=== PATIENT | female | born 1985 ===

== ENCOUNTER 2019-06-28 17:12 | Outpatient (CLI) | payer OTHER ==
[2019-06-28 21:41] VITALS: BP 103/58
[2019-06-28 21:43] LABS: Hematocrit 28.5 % (30.3-42.9); Hemoglobin 9.8 gm/dl (10.1-14.3); Mean Corpuscular HGB Conc 35 % (30-34); Mean Corpuscular Volume 85 fl (79-97); Platelet Count 254 K/mm3 (140-440); Red Blood Count 3.37 M/mm3 (3.65-5.03); Red Cell Distribution Width 13.6 % (13.2-15.2)
--- NOTE | 2019-06-29 00:05 | Ultrasound Report ---
ULTRASOUND OBSTETRIC LIMITED ULTRASOUND BIOPHYSICAL PROFILE INDICATION / CLINICAL INFORMATION: fell one day ago. Clinical gestational age: 24 weeks 0 days. COMPARISON: None available. FINDINGS: BREATHING MOVEMENT = 2 GROSS BODY MOVEMENT = 2 TONE = 2 QUALITATIVE AMNIOTIC FLUID VOLUME = 2 TOTAL BIOPHYSICAL SCORE = 8/8 HEART RATE (beats per minute): 144 AMNIOTIC FLUID INDEX (cm) = 12.5 cm within normal limits PRESENTATION: Breech. PLACENTA: Anterior. No acute abnormality. ADDITIONAL FINDINGS: None. IMPRESSION: 1. Biophysical Score = 8/8 2. No acute sonographic abnormality. Signer Name: Little Cox MD Signed: 06/29/2019 12:00 AM Workstation Name: [id number]
--- NOTE | 2019-06-29 00:07 | Ultrasound Report ---
ULTRASOUND OBSTETRIC LIMITED ULTRASOUND BIOPHYSICAL PROFILE INDICATION / CLINICAL INFORMATION: fell one day ago. Clinical gestational age: 24 weeks 0 days. COMPARISON: None available. FINDINGS: BREATHING MOVEMENT = 2 GROSS BODY MOVEMENT = 2 TONE = 2 QUALITATIVE AMNIOTIC FLUID VOLUME = 2 TOTAL BIOPHYSICAL SCORE = 8/8 HEART RATE (beats per minute): 144 AMNIOTIC FLUID INDEX (cm) = 12.5 cm within normal limits PRESENTATION: Breech. PLACENTA: Anterior. No acute abnormality. ADDITIONAL FINDINGS: None. IMPRESSION: 1. Biophysical Score = 8/8 2. No acute sonographic abnormality. Signer Name: Little Cox MD Signed: 06/29/2019 12:03 AM Workstation Name: [id number]
== END 2019-06-28 22:02 | disposition home or self-care (01) ==
LOC: TRG 17:12
PROVIDERS: ATTEND Obstetrics & Gynecology
DX: O26.892 Other specified pregnancy related conditions, second trimester (principal); M76.01 Gluteal tendinitis, right hip; M76.02 Gluteal tendinitis, left hip; Z3A.24 24 weeks gestation of pregnancy
CPT/HCPCS: 36415; 76815; 76819; 85027; 86850; 86900; 86901

== ENCOUNTER 2019-10-17 15:44 | Outpatient (CLI) | payer MEDICAID ==
[2019-10-17 16:05] VITALS: BP 110/66
[2019-10-17] MEDS ORDERED: NITRAZINE (URINE TESTING PAPER) MC ONE (16:25)
== END 2019-10-17 17:05 | disposition home or self-care (01) ==
LOC: TRG 15:44
PROVIDERS: ATTEND Obstetrics & Gynecology
DX: O46.93 Antepartum hemorrhage, unspecified, third trimester (principal); O47.1 False labor at or after 37 completed weeks of gestation; Z3A.40 40 weeks gestation of pregnancy
CPT/HCPCS: 59025